=== PATIENT | female | born 1980 | race Caucasian/White ===

== ENCOUNTER 2018-10-21 21:28 | Emergency (ER) | payer BC, OTHER ==
[~2018-10-21] VITALS: Ht 172.7 cm; Wt 52.6 kg
[~2018-10-21 21:28] MED LIST: IBUP-1542 PO; ONDA4TAB14 PO
[2018-10-21 21:36] VITALS: Ht 172.7 cm; Wt 52.6 kg
--- NOTE | 2018-10-21 22:21 | ERD ---
ER Documentation Chief Complaint Chief Complaint DIZZY HPI The patient is a 38-year-old female, presenting to the ER because of dizziness, nausea, palpitation when she stands up. She denies syncope, near syncope, neck pain, chest pain, dyspnea, abdominal pain, vomiting, dysuria, diarrhea. She does not smoke nor drink. She recently had abdominoplasty and bilateral thigh liposuction 8 days ago. She just finished her before she had the surgery but the period started again after surgery. She also complains of right wrist pain where she had IV Medical history: None Past surgical history: 3 , appendectomy, umbilical herniorrhaphy ROS All systems reviewed and are negative except as per history of present illness. Medications Home Meds Active Scripts Ondansetron (Ondansetron Odt) 4 Mg Tab.rapdis, 4 MG PO Q6H PRN for NAUSEA AND/OR VOMITING, #10 TAB Prov:JOSE ANGEL PRADO MD 10/22/18 Ibuprofen* (Motrin*) 600 Mg Tab, 600 MG PO Q6H PRN for PAIN AND OR ELEVATED TEMP, #20 TAB Prov:JOSE ANGEL PRADO MD 10/22/18 Allergies Allergies: Coded Allergies: No Known Allergy (Unverified , 10/21/18) PMhx/Soc Medical and Surgical Hx: pt denies Medical Hx History of Surgery: Yes (LIPOSUCTION, TUMMY TUCK) Anesthesia Reaction: No Hx Alcohol Use: No Hx Substance Use: No Hx Tobacco Use: No Smoking Status: Never smoker Physical Exam Vitals Vital Signs Date Temp Pulse Resp B/P (MAP) Pulse Ox O2 O2 Flow FiO2 Time Delivery Rate 10/22/18 82 18 96/65 (75) 100 Room Air 02:27 10/21/18 99.6 103 19 118/71 100 21:36 (87) Physical Exam Const: No acute distress. Dehydrated Head: Atraumatic. Eyes: Normal Conjunctiva. ENT: Normal External Ears, Nose and Mouth. Neck: Full range of motion. No meningismus. Resp: Clear to auscultation bilaterally. Cardio: Regular tachycardic Abd: Soft, non distended, normal bowel sounds, non tender. Lower abdominal incision is healing well Skin: No petechiae or rashes. Back: No midline or flank tenderness. Ext: Bilateral thigh with ecchymosis from liposuction, no calf tenderness.small right wrist phlebitis Neur: Awake and alert. No focal deficit Psych: Normal Mood and Affect. Result Diagram: 10/21/18221410/21/182214 Results 24 hrs Laboratory Tests Test 10/21/18 22:15 10/21/18 22:28 10/21/18 22:29 White Blood Count 6.7 10^3/ul Red Blood Count 3.15 10^6/ul Hemoglobin 9.4 g/dl Hematocrit 29.7 % Mean Corpuscular Volume 94.3 fl Mean Corpuscular Hemoglobin 29.8 pg Mean Corpuscular Hemoglobin Concent 31.6 g/dl Red Cell Distribution Width 13.7 % Platelet Count 343 10^3/UL Mean Platelet Volume 9.5 fl Immature Granulocytes % 0.100 % Neutrophils % 69.1 % Lymphocytes % 18.7 % Monocytes % 8.1 % Eosinophils % 3.6 % Basophils % 0.4 % Nucleated Red Blood Cells % 0.0 /100WBC Immature Granulocytes # 0.010 10^3/ul Neutrophils # 4.6 10^3/ul Lymphocytes # 1.3 10^3/ul Monocytes # 0.5 10^3/ul Eosinophils # 0.2 10^3/ul Basophils # 0.0 10^3/ul Nucleated Red Blood Cells # 0.0 10^3/ul D-Dimer 2721.33 ng/ml D-Dimer Comment Sodium Level 141 mmol/L Potassium Level 3.8 mmol/L Chloride Level 105 mmol/L Carbon Dioxide Level 27 mmol/L Anion Gap 9 Blood Urea Nitrogen 19 mg/dl Creatinine 0.58 mg/dl Est Glomerular Filtrat Rate mL/min > 60 mL/min Glucose Level 114 mg/dl Calcium Level 9.5 mg/dl Total Bilirubin 0.4 mg/dl Direct Bilirubin 0.00 mg/dl Indirect Bilirubin 0.4 mg/dl Aspartate Amino Transf (AST/SGOT) 19 IU/L Alanine Aminotransferase (ALT/SGPT) 18 IU/L Alkaline Phosphatase 34 IU/L Total Protein 7.7 g/dl Albumin 4.2 g/dl Globulin 3.50 g/dl Albumin/Globulin Ratio 1.20 Lipase 134 U/L Bedside Urine pH (LAB) 8.5 Bedside Urine Protein (LAB) Negative Bedside Urine Glucose (UA) Negative Bedside Urine Ketones (LAB) Negative Bedside Urine Blood 3+ Bedside Urine Nitrite (LAB) Negative Bedside Urine Leukocyte Esterase (L Negative POC Beta HCG, Qualitative NEGATIVE Current Medications Medications Dose Sig/Jazmine Start Time Status Last (Trade) Ordered Route PRN Stop Time Admin Dose Reason Admin Sodium 1,000 ml @ Q1H STAT 10/21/18 DC 10/21/18 Chloride 1,000 mls/hr IV 22:53 10/21/18 23:23 23:52 Ondansetron 4 mg ONCE STAT 10/21/18 DC 10/21/18 HCl (Zofran IV 22:53 10/21/18 23:23 Inj) 22:56 IV Flush 10 ml STK-MED 10/22/18 DC 10/22/18 (NS 10 ml) ONCE .ROUTE 00:10 00:17 10/22/18 00:11 Sodium 100 ml @ ud STK-MED 10/22/18 DC 10/22/18 Chloride ONCE .ROUTE 00:10 00:17 10/22/18 00:11 Iohexol 100 ml @ ud STK-MED 10/22/18 DC 10/22/18 ONCE .ROUTE 00:10 00:17 10/22/18 00:11 Procedures/[place] [address] Radiology Main Line: [phone] DIAGNOSTIC IMAGING REPORT Patient: JESSICA REESE : 1980 Age: 38 Sex: F MR #: [id number] DOS: 10/21/18 0000 Ordering MD: JOSE ANGEL PRADO MD Location: E/R Room/Bed: PROCEDURE: CT Angio Chest with IV contrast. CLINICAL INDICATION: Shortness of breath TECHNIQUE: CT scan of the chest was performed on a multidetector scanner. The patient was scanned following the uncomplicated intravenous administration of 100 cc of Omnipaque 350 contrast. 3D, coronal and sagittal reformatted images were obtained from the axial source images. Images were reviewed on a high- resolution PACS workstation. The total exam CTDlvol = 20 mGy and DLP = 209 mGy- cm. One of the following 3 dose reduction techniques were used: Automated exposure control; adjustment of the mA and/or kV according to patient size; or use of iterative reconstruction technique. DICOM images are available. COMPARISON: Chest x-ray 02/16/2007 FINDINGS: No filling defects are identified within the pulmonary arteries to suggest pulmonary artery thrombosis. Thoracic aorta is normal caliber without aneurysm or dissection. There is no mediastinal or hilar lymphadenopathy or mass. Heart is normal size. No pericardial fluid or thickening. There is minimal dependent atelectasis. No focal infiltrate. There is no pleural effusion. There is no pneumothorax. There are no fractures. Chest wall is unremarkable. Imaging obtained through the upper abdomen reveals no acute abnormality. IMPRESSION: 1. No evidence for pulmonary embolus. 2. No aortic aneurysm or dissection. 3. Minimal dependent atelectasis. RPTAT: [facility]K .Jose Angel Monroy MD, MD Date Time Electronically viewed and signed by .Jose Angel Monroy MD, MD on 10/22/2018 00:58 .K/ CC: JOSE ANGEL PRADO MD [phone] EKG: Read by emergency physician Rate/Rhythm: Normal Sinus Rhythm 77 beats/min QRS, ST, T-waves: No ST elevation, no T inversion, 1st AVB Impression: Abnormal EKG MEDICAL MAKING DECISION: The patient is a 38-year-old female, presenting with acute dizziness most likely due to acute dehydration, right wrist phlebitis She was treated with 1 L normal saline for dehydration, Zofran for medical IV for now sent with good response, is stable for outpatient follow-up The differential diagnoses considered include but are not limited to central causes such as cerebellar infarct, cerebellar hemorrhage, cerebellar tumor, acoustic neuroma, peripheral causes such as benign positional vertigo, labyrinthitis, medication, Meniere's disease. Departure Diagnosis: Primary Impression: Dizziness Additional Impressions: Dehydration Phlebitis Condition: Good Comments She was discharged with Motrin and Zofran I discussed the findings with the patient. I advised the patient to follow-up with the primary physician in about 1-2 days, sooner if needed and return if any concern. Disclaimer: Inadvertent spelling and grammatical errors are likely due to EHR/dictation software use and do not reflect on the overall quality of patient care. Also, please note that the electronic time recorded on this note does not necessarily reflect the actual time of the patient encounter. JOSE ANGEL PRADO MD Oct 21, 2018 22:21
[2018-10-21] MEDS ORDERED: SOD CHLORIDE 0.9% 1,000 ML IV STA (22:53)
[2018-10-21] MEDS ORDERED: ONDANSETRON 4 MG INJ IV STA (22:53)
[2018-10-22] MEDS ORDERED: SOD CHLORIDE 0.9% 100 ML ONE (00:10)
[2018-10-22] MEDS ORDERED: IOHEXOL 100 ML ONE (00:10)
[2018-10-22 02:27] VITALS: BP 96/65; PULSE 82; RESP 18
== END 2018-10-22 02:35 | disposition home or self-care (01) ==
LOC: E/R 21:28
DX: E86.0 Dehydration (principal); I80.8 Phlebitis and thrombophlebitis of other sites; R58 Hemorrhage, not elsewhere classified
CPT/HCPCS: 36415; 71275; 80053; 81003; 81025; 83690; 85025; 85378; 96374; J2405; J7030; Q9967; Z7502; Z7610; 93005

== ENCOUNTER 2018-11-25 16:30 | Emergency (ER) | payer OTHER ==
[~2018-11-25] VITALS: Wt 68.0 kg
[~2018-11-25 16:30] MED LIST changes: +CEPH-443 PO; +TRIA15CR55 TOP
[2018-11-25 16:34] VITALS: BP 135/69; PULSE 82; RESP 18
== END 2018-11-25 17:26 | disposition home or self-care (01) ==
LOC: E/R 16:30
DX: S80.861A Insect bite (nonvenomous), right lower leg, initial encounter (principal); L08.9 Local infection of the skin and subcutaneous tissue, unspecified; W57.XXXA Bitten or stung by nonvenomous insect and other nonvenomous arthropods, initial encounter; Y92.9 Unspecified place or not applicable
CPT/HCPCS: 99283